=== PATIENT | female | born 1980 | race Caucasian/White ===

== ENCOUNTER 2021-12-23 15:01 | Emergency (ER) | payer MEDICAID ==
[~2021-12-23] VITALS: Ht 180.3 cm; Wt 122.7 kg
[2021-12-23 15:07] VITALS: TEMP 97.1
[2021-12-23 16:41] VITALS: BP 139/78; PULSE 79
== END 2021-12-23 16:46 | disposition home or self-care (01) ==
LOC: COL.ER 15:01
DX: O89.4 Spinal and epidural anesthesia-induced headache during the puerperium (principal); Z91.040 Latex allergy status
CPT/HCPCS: J7120